=== PATIENT | female | born 1950 | race Caucasian/White ===

== ENCOUNTER 2018-11-10 20:33 | Inpatient (IN) ==
[2018-11-10] MEDS ORDERED: VANCOMYCIN CONSULT ACTIVE PRN ×2 (21:13→22:38)
[2018-11-10] MEDS ORDERED: VANCOMYCIN HCL 1,750 MG in SODIUM CHLORIDE 0.9% 500 ML IV ONE (21:13)
[2018-11-10] MEDS ORDERED: MoRPHine SULFATE 4 MG/ML 1 ML CARP\\VIAL IV STA (21:13)
[2018-11-10] MEDS ORDERED: ONDANSETRON INJ 2 MG/ML 2 ML VIAL IV STA (21:13)
[2018-11-10] MEDS ORDERED: SODIUM CHLORIDE 0.9% 1000ML 1,000 ML IV ONE (21:14)
[2018-11-10 22:03] LABS: Albumin Level 3.6 gm/dl (3.4-5.0); BUN Creatinine Ratio 18.2 (10-20); Calcium 9.5 mg/dl (8.5-10.1); Creatinine Clr Calc Pharmacy 70.5 ml/min; Est GFR (Non-African American) 72.5
[2018-11-10 22:07] LABS: Albumin Globulin Ratio 0.8 (0.9-2); Bilirubin,Total 0.7 mg/dl (0.2-1); Globulin 4.7 gm/dl (2.5-4.0); Total Protein 8.3 gm/dl (6.4-8.2)
[2018-11-10] MEDS ORDERED: MAGNESIUM HYDROXIDE SUSP 30 ML UDC PO PRN (22:25)
--- NOTE | 2018-11-10 22:53 | Ultrasound Report ---
US abdomen limited CLINICAL HISTORY: 67 years-old Female presenting with r groin abscess. TECHNIQUE: Real-time grayscale ultrasound imaging of the right labia and right groin was performed fo r a focused evaluation at the site of clinical concern. Color Doppler ultrasound imaging was also per formed. COMPARISON: None. FINDINGS: At the site of clinical concern in the region of the right labia, no fluid collection is evident. Ext ensive subcutaneous edema and dilated lymphatics with hyperemia of the subcutaneous fat. A catheter i s noted in this region. IMPRESSION: 1. Catheter noted in the phlegmonous region of inflammation. No abscess. Findings consistent with se tiffany cellulitis. Electronically signed by: Deniz Grey M.D. 11/10/2018 10:52 PM
[2018-11-10 23:52] LABS: Basophils # (auto) 0.01 K/uL (0-0.2); Basophils % (auto) 0.1 %; Eosinophils # (auto) 0.02 K/uL (0-0.5); Eosinophils % (auto) 0.1 %; Hematocrit (blood only) 37.3 % (37-47); Hemoglobin 12.6 g/dL (12.0-16.0); Immature Granulocytes # (auto) 0.03 K/uL (0.00-0.02); Immature Granulocytes % (auto) 0.2 %; Lymphocytes # (auto) 0.93 K/uL (1.2-3.4); Lymphocytes % (auto) 6.8 %; Mean Corpuscular Hgb Conc 33.8 g/dL (32-36); Mean Corpuscular Volume 83.4 fL (80-100); Mean Platelet Volume 11.7 fL (7.4-10.4); Monocytes # (auto) 0.89 K/uL (0.11-0.59); Monocytes % (auto) 6.5 %; Neutrophils # (auto) 11.72 K/uL (1.4-6.5); Neutrophils % (auto) 86.3 %; Platelet Count 202 K/uL (130-400); RDW Coefficient of Variation 14.6 % (11.5-14.5); RDW Standard Deviation 44.8 fL (36.4-46.3); Red Blood Count 4.47 M/uL (4.2-5.4)
--- NOTE | 2018-11-11 00:11 | Emergency Department Note ---
Entered by Alonso Leach acting as a scribe for Cristóbal Lu DO History of Present Illness General Chief complaint: Wound Stated complaint: ABCESS IN THE VAGINAL AREA, DOCTOR WAS TOLD TO COM Source: patient History of Present Illness Onset (ago): day(s) 2 Location: genitals (labial) Pain Consistency: + other (worsening) Quality: + other (soreness, abscess) Associated symptoms: + fever/chills (102); no nausea/vomiting The patient is a 67 year old female who presents to the Emergency Room with complaints of a worsening right-sided labial abscess. The patient reports that she first developed a small bump in the area two days ago, it worsened yes terday, and today it became larger and she developed soreness in the area. Today she also developed fevers of 102. She states that they were unable to roc the wound at the [facility] office today, but a word catheter was placed and she was given Rocephin. She called her PCP after developing fevers and was referred to the ER. She took three tablets of ibuprofen 2.5 hours ago that temporarily alleviated her symptoms. She denies difficulties urinating, nausea, vomiting, or diarrhea. Home Medications Home Medications Medication Instructions Recorded Confirmed Type atorvastatin [Lipitor] 20 mg PO DAILY 11/10/18 11/10/18 History cranberry 500 mg PO DAILY 11/10/18 11/10/18 History lisinopril 10 mg PO DAILY 11/10/18 11/10/18 History metronidazole [MetroCream] 1 applic TOPICAL BID PRN 11/10/18 11/10/18 History naproxen 250 mg PO BID PRN 11/10/18 11/10/18 History pantoprazole [Protonix] 40 mg PO DAILY 11/10/18 11/10/18 History sulfamethoxazole-trimethoprim 1 tab PO BID 11/10/18 11/10/18 History [Bactrim DS] tramadol 50 mg PO Q6H PRN 11/10/18 11/10/18 History Allergies Allergy/AdvReac Type Severity Reaction Status Date / Time adhesive Allergy Severe WELTS AND Verified 11/10/18 21:33 BLISTERS cephalexin [From Keflex] AdvReac Severe nausea/vomi Verified 11/10/18 21:34 ting Past Med/Surg History Medical History Hyperlipidemia Hypertension Family History Other Family history non-contributory Social History Feels Safe at Home: Yes Smoking Status: Never smoker Review of Systems See HPI for pertinent positives & negatives. and A total of 10 systems reviewed and were otherwise negative Physical Exam Vital Signs Vital Signs - 24 hr 11/10/18 20:37 11/10/18 23:20 11/10/18 23:46 Temperature 37.4 C Temperature Source Oral Sepsis Recent Fever Within 48 Hours Yes Sepsis New/Unexplained Change in Mental Status No Sepsis Action Taken by Nursing No Action Required Pulse Rate 103 H 80 Pulse Rate [Right] 78 Pulse Rhythm Regular Pulse Rhythm [Right] Regular Pulse Strength Normal Pulse Strength [Right] Normal Respiratory Rate 18 18 18 Respiratory Effort / Characteristics Non-Labored Non-Labored Spontaneous Respiratory Depth Normal Normal Respiratory Pattern Regular Regular Blood Pressure 145/91 H 141/92 H Blood Pressure [Right Arm] 150/88 H Blood Pressure Mean 109 Blood Pressure Mean [Right Arm] 108 Blood Pressure Position Sitting Blood Pressure Position [Right Arm] Lying Pulse Oximetry 95 96 96 Oxygen Delivery Method Room Air Room Air Room Air GENERAL: alert, sitting up in bed, well appearing, well nourished, no distress, non-toxic EYE EXAM: normal conjunctiva OROPHARYNX: no exudate, no erythema, lips, buccal mucosa, and tongue normal and mucous membranes are moist NECK: supple, no nuchal rigidity, no adenopathy, non-tender LUNGS: Clear to auscultation. Normal chest wall mechanics HEART: no murmurs, S1 normal and S2 normal ABDOMEN: abdomen soft, non-tender, normo-active bowel sounds, no masses, no rebo und or guarding. GENITOURINARY: There is a 6cm by 14cm abscess in the right labial area tracking towards the gluteus and toward the abdomen. BACK: Back is symmetrical on inspection and there is no deformity, no midline tenderness, no CVA tenderness. SKIN: no rashes and no bruising UPPER EXTREMITIES: upper extremities are grossly normal. LOWER EXTREMITIES: No pitting edema. NEURO EXAM: Normal sensorium, cranial nerves II-XII grossly intact, normal speech, no gross weakness of arms, no gross weakness of legs. Gross sensation intact. Course ED COURSE: Vital signs were reviewed and showed hypertension and tachycardia The patients medical record was reviewed The above diagnostic studies were performed and reviewed. ED treatments and interventions as stated above. 2104: The patient was evaluated in room B9. A complete history and physical examination was performed. 2117: I consulted Dr. Otero [facility]. He will evaluate the patient. Based on the patients age, coexisting illnesses, exam and lab findings the decision to treat as an inpatient was made. The patient remained stable while under my care. The patient will be evaluated for further management. Administered Medications Discontinued Medications Vancomycin HCl 1,750 mg/ (Sodium Chloride) 535 mls @ 200 mls/hr IV NOW ONE; Protocol Stop: 11/10/18 23:53 Last Admin: 11/10/18 22:00 Dose: 200 mls/hr Documented by: [id number] Sodium Chloride (Nss 1000ml) 1,000 mls @ 999 mls/hr IV .Q1H1M ONE Stop: 11/10/18 22:14 Last Infusion: 11/10/18 23:09 Dose: 0 mls/hr Documented by: [id number] Admin: 11/10/18 22:06 Dose: 999 mls/hr Documented by: [id number] Morphine Sulfate (Morphine Sulfate) 4 mg IV NOW STA Stop: 11/10/18 21:14 Last Admin: 11/10/18 21:59 Dose: 4 mg Documented by: [id number] Ondansetron HCl (Zofran) 4 mg IV NOW STA Stop: 11/10/18 21:14 Last Admin: 11/10/18 21:59 Dose: 4 mg Documented by: [id number] Medical Decision Making Differential Diagnosis Differential diagnosis includes: cellulitis, abscess, MRSA infection, DVT, necrotizing fasciitis, dermatitis, drug eruption, as well as others were entertained. Medical Records Attestation: I reviewed the patient's medical records. Home Medications Current Medication List: was personally reviewed by me Laboratory Data Attestation: I reviewed the patient's lab results. Result diagrams: 11/10/18 21:36 11/10/18 21:36 Lab Results 11/10/18 11/10/18 Range/Units 21:36 21:36 WBC 13.60 H (4.8-10.8) K/uL RBC 4.47 (4.2-5.4) M/uL Hgb 12.6 (12.0-16.0) g/dL Hct 37.3 (37-47) % MCV 83.4 (80-100) fL MCH 28.2 (25-34) pg MCHC 33.8 (32-36) g/dL RDW Std Deviation 44.8 (36.4-46.3) fL RDW Coeff of Conner 14.6 H (11.5-14.5) % Plt Count 202 (130-400) K/uL MPV 11.7 H (7.4-10.4) fL Immature Gran % (Auto) 0.2 % Neut % (Auto) 86.3 % Lymph % (Auto) 6.8 % Bracken % (Auto) 6.5 % Eos % (Auto) 0.1 % Baso % (Auto) 0.1 % Immature Gran # (Auto) 0.03 H (0.00-0.02) K/uL Neut # (Auto) 11.72 H (1.4-6.5) K/uL Lymph # (Auto) 0.93 L (1.2-3.4) K/uL Bracken # (Auto) 0.89 H (0.11-0.59) K/uL Eos # (Auto) 0.02 (0-0.5) K/uL Baso # (Auto) 0.01 (0-0.2) K/uL Sodium 138 (136-145) mmol/L Potassium (3.5-5.1) mmol/L Chloride 108 H (98-107) mmol/L Carbon Dioxide 20 L (21-32) mmol/L Anion Gap 9.0 (3-11) BUN 15 (7-18) mg/dl Creatinine 0.83 (0.6-1.2) mg/dl Est Cr Clr Drug Dosing 70.5 ml/min Est GFR ( Amer) 84.0 Est GFR (Non-Af Amer) 72.5 BUN/Creatinine Ratio 18.2 (10-20) Glucose 124 H (70-99) mg/dl Calcium 9.5 (8.5-10.1) mg/dl Total Bilirubin 0.7 (0.2-1) mg/dl AST (15-37) U/L ALT 21 (12-78) U/L Alkaline Phosphatase 105 (45-117) U/L Total Protein 8.3 H (6.4-8.2) gm/dl Albumin 3.6 (3.4-5.0) gm/dl Globulin 4.7 H (2.5-4.0) gm/dl Albumin/Globulin Ratio 0.8 L (0.9-2) Imaging Data Radiologist's Impression: Radiology results as stated below per my review and the radiologist's interpretation: US abdomen limited CLINICAL HISTORY: 67 years-old Female presenting with r groin abscess. TECHNIQUE: Real-time grayscale ultrasound imaging of the right labia and right groin was performed for a focused evaluation at the site of clinical concern. Color Doppler ultrasound imaging was also performed. COMPARISON: None. FINDINGS: At the site of clinical concern in the region of the right labia, no fluid collection is evident. Extensive subcutaneous edema and dilated lymphatics with hyperemia of the subcutaneous fat. A catheter is noted in this region. IMPRESSION: 1. Catheter noted in the phlegmonous region of inflammation. No abscess. Findings consistent with severe cellulitis. Electronically signed by: Deniz Grey M.D. 11/10/2018 10:52 PM Blood Pressure Blood Pressure Findings: Elevated blood pressure Blood Pressure Disposition: elevated BP felt to be situational MDM Narrative Patient is a 67-year-old female who presents the ER for a right labial pain and swelling associate with a fever of 102. Patient was seen in [facility] estate management specialist office today and had a work catheter placed. Started having fevers and was referred in. Labs showed a leukocytosis of 13,000. No significant anemia. BMP with a slightly low CO2 at 20. No significant transaminitis or elevated bilirubin. Patient is fairly healthy with no significant past medical history with exception of hypertension. Bedside ultrasound was performed and showed no focal collection but cobblestoning consistent with cellulitis. I did order a formal ultrasound which showed persistent cellulitis. Patient was given IV vancomycin. Patient already received IM Rocephin earlier today. She was updated bedside and admitted to [facility]. Impression & Plan Labial abscess, Cellulitis Discharge Plan Visit Data Chief Complaint: Wound Stated Complaint: ABCESS IN THE VAGINAL AREA, DOCTOR WAS TOLD TO COM ED Provider: Cristóbal Lu Discharge Problem: Labial abscess, Cellulitis Patient Disposition: Being Evaluated by Surgeon Discharge Instructions Interventions: ED Discharge Assessment Last Done: 11/10/18 23:46 Discharge Problem: Cellulitis Qualifiers: Site of cellulitis: unspecified site Qualified Code(s): L03.90 - Cellulitis, unspecified The scribe's documentation has been prepared under my direction and personally reviewed by me in its entirety. I confirm that the note above accurately reflects all work, treatment, procedures, and medical decision making performed by me.
[2018-11-11] MEDS: ACETAMINOPHEN 325 MG TAB PO PRN ×3 (00:44→15:45)
[2018-11-11] MEDS: LACTATED RINGER'S 1,000 ML IV SCH ×2 (00:45→08:47)
--- NOTE | 2018-11-11 01:47 | History and Physical Report ---
DATE OF ADMISSION: 11/10/2018 REASON FOR ADMISSION: Vulvar abscess on the right. HISTORY OF PRESENT ILLNESS: The patient is a 67-year-old white female para 3-0-0-3, postmenopausal, who presents to the ER after having noted a small dimple like lesion on the right labia this past Friday, which became enlarged, noticeably painful and draining as of yesterday, she presented to the office today with a large vulvar abscess. She was seen by Dr. Kevin who attempted to drain the abscess with little or no fluid obtained. A Word catheter was placed at that time and she was started on p.o. antibiotics. The patient developed a fever at home up to 102.6 and presented to the ER. PAST MEDICAL HISTORY: Significant for hypertension and elevated cholesterol. PAST SURGICAL HISTORY: Positive for bilateral knee replacement, hysterectomy. ALLERGIES: ADHESIVE and KEFLEX. SOCIAL HISTORY: Denies smoking, alcohol or drug use. FAMILY HISTORY: Noncontributory. REVIEW OF SYSTEMS: Negative. PHYSICAL EXAMINATION: VITAL SIGNS: Blood pressure 145/91, pulse 103, respirations 18, temperature here is 37.4 and O2 sat 95 on room air. HEENT: Within normal limits. LUNGS: Clear to auscultation. CORONARY: Regular rate and rhythm. ABDOMEN: Soft, nontender. EXTREMITIES: Without evidence of edema. Negative Homans'. GENITOURINARY: There is a slight right-sided labial abscess that is red and swollen and tender. Word catheter present. Cultures obtained from the wound. The wound is extending into the gluteal region, does not appear to be a necrotizing fasciitis at this point. ASSESSMENT: Vulvar abscess on the right with cellulitis extension into the gluteus muscle. There is no active pus draining at the present time. Labs are pending since the CBC machine is not working at this time. Cultures were obtained including wound, urine and blood. The patient will be started on IV vancomycin, she received a loading dose and will get a dose later on. PLAN: We will admit, keep on IV antibiotics and will allow to ambulate and eat.
[2018-11-11 02:12] LABS: Basophils # (auto) 0.01 K/uL (0-0.2); Basophils % (auto) 0.1 %; Eosinophils # (auto) 0.04 K/uL (0-0.5); Eosinophils % (auto) 0.3 %; Hematocrit (blood only) 32.4 % (37-47); Hemoglobin 10.9 g/dL (12.0-16.0); Immature Granulocytes # (auto) 0.04 K/uL (0.00-0.02); Immature Granulocytes % (auto) 0.3 %; Lymphocytes # (auto) 0.97 K/uL (1.2-3.4); Lymphocytes % (auto) 8.2 %; Mean Corpuscular Hgb Conc 33.6 g/dL (32-36); Mean Corpuscular Volume 83.5 fL (80-100); Mean Platelet Volume 10.2 fL (7.4-10.4); Monocytes # (auto) 1.03 K/uL (0.11-0.59); Monocytes % (auto) 8.7 %; Neutrophils # (auto) 9.73 K/uL (1.4-6.5); Neutrophils % (auto) 82.4 %; Platelet Count 155 K/uL (130-400); RDW Coefficient of Variation 14.9 % (11.5-14.5); RDW Standard Deviation 45.3 fL (36.4-46.3); Red Blood Count 3.88 M/uL (4.2-5.4); White Blood Count 11.82 K/uL (4.8-10.8)
[2018-11-11 02:40] LABS: Albumin Globulin Ratio 0.8 (0.9-2); BUN Creatinine Ratio 16.3 (10-20); Bilirubin,Total 0.6 mg/dl (0.2-1); Creatinine Clr Calc Pharmacy 84.8 ml/min; Est GFR (African American) 103.7; Est GFR (Non-African American) 89.4; Globulin 3.8 gm/dl (2.5-4.0); Potassium 3.5 mmol/L (3.5-5.1); Total Protein 6.8 gm/dl (6.4-8.2)
[2018-11-11 04:39] LABS: Appearance Urine Clear (Clear); Bacteria Urine Automated Negative (Negative); Bilirubin Urine Negative (Negative); Blood Urine 2+ (Negative); Color Urine Yellow; Glucose Urine UA Negative (Negative); Ketones Urine 1+ (Negative); Leukocyte Esterase Urine Trace (Negative); Nitrite Urine Negative (Negative); Protein Urine Negative (Negative); Specific Gravity Urine 1.014 (1.000-1.030); Urobilinogen Urine Negative (Negative); pH Urine 5.5 (4.5-7.5)
[2018-11-11 08:00] LABS: INR 1.1 (0.9-1.1); Prothrombin Time 11.1 Seconds (9.0-12.0)
[2018-11-11] MEDS: LISINOPRIL 10 MG TAB PO SCH (08:47)
[2018-11-11] MEDS: ATORVASTATIN 20 MG TAB PO SCH (08:48)
[2018-11-11] MEDS: PANTOprazole 40 MG TAB PO SCH (08:48)
[2018-11-11] MEDS: VANCOMYCIN HCL 1,250 MG in SODIUM CHLORIDE 0.9% 250 ML IV SCH ×2 (09:44→23:51)
[2018-11-11] MEDS: ALUMINUM/MAGNESIUM/SIMETH (MAALOX MAX) 30 ML UDC PO PRN (10:06)
[2018-11-11] MEDS: ENOXAPARIN INJ 40 MG/0.4 ML SYR SQ SCH (10:07)
--- NOTE | 2018-11-11 14:49 | Pharmacy Report ---
Pharmacy Abx Initial Consult - Date of Service November 11, 2018 - Pharmacy Dosing Scope Date of Consult: 11/11/18 Consultation requested by: Dr. Otero Pharmacy is consulted to initiate Vancomycin IV dosing therapy, order appropriate labs and adjust drug dose/frequency. - Subjective The patient is a 67 year old F admitted on 11/10/18 22:27. - Objective Height: 5 ft 6 in Weight: 83.1 kg Vital Signs (Past 12hrs): Vital Signs Temp Pulse Resp BP Pulse Ox Pulse Ox 11/11/18 11:30 37.0 C 79 16 122/79 97 97 11/11/18 07:15 37.1 C 84 18 132/77 96 11/11/18 03:15 36.9 C 72 18 116/72 97 Lab Results (24hrs): Laboratory Tests (24 Hours) 11/11/18 11/11/18 11/11/18 02:03 02:03 02:03 WBC 11.82 H Neut # (Auto) 9.73 H Creatinine 0.69 Est Cr Clr Drug Dosing 84.8 Vancomycin Peak 20.6 L 11/10/18 11/10/18 21:36 21:36 WBC 13.60 H Neut # (Auto) 11.72 H Creatinine 0.83 Est Cr Clr Drug Dosing 70.5 Vancomycin Peak Micro Results: 11/10/18 22:15 Gram Stain - Final Vulva Genital Culture - Pending 11/11/18 06:30 MRSA Surveillance Culture - Pending Skin 11/11/18 04:20 Urine Culture - Pending Urine,Clean Catch 11/10/18 23:28 Aerobic Blood Culture - Pending Blood Anaerobic Blood Culture - Pending 11/10/18 23:21 Aerobic Blood Culture - Pending Blood Anaerobic Blood Culture - Pending - Assessment & Plan Assessment 67 year old F admitted with vaginal abscess/ cellulitis. She was treated with Rocephin 1gm IM as an outpatient and Bactrim PO but her infection got worse. Plan Vancomycin for treatment of Vaginal abscess/cellulitis. Vancomycin IV * Estimated PK Parameters: Vd 0.7 L/kg, Fredo 0.063 hr-1, t1/2 11 hr * Loading dose: 1750 mg (21 mg/kg) * Maintenance dose: 1250 mg IV (15 mg/kg) every 14 hours * Goal trough level for cellulitis: 15 to 20 mcg/mL * Trough Vanco level ordered for 11/13/18 before dose at 0400. Pharmacy will continue to follow and will adjust dose/frequency as necessary. Thank you.
[2018-11-11] MEDS: IBUPROFEN 600 MG TAB PO PRN ×2 (16:33→22:14)
[2018-11-12] MEDS: IBUPROFEN 600 MG TAB PO PRN ×4 (04:31→22:09)
[2018-11-12] MEDS: PANTOprazole 40 MG TAB PO SCH ×2 (07:35→07:37)
[2018-11-12] MEDS: LISINOPRIL 10 MG TAB PO SCH (08:41)
[2018-11-12] MEDS: ATORVASTATIN 20 MG TAB PO SCH (08:41)
[2018-11-12] MEDS: ENOXAPARIN INJ 40 MG/0.4 ML SYR SQ SCH (08:42)
--- NOTE | 2018-11-12 09:32 | Obstetrical Progress Note ---
Date of Service November 12, 2018 Subjective Patient is seen and examined She feels better Pain is better No fever/ chills/ N&V/ problems with urination nor BM Eating good, ambulating Vital Signs Temp Pulse Pulse Resp BP BP Pulse Ox 11/12/18 07:40 36.5 C 57 L 18 118/73 97 11/12/18 04:30 36.7 C 64 18 108/67 98 11/11/18 23:40 36.5 C 65 18 127/75 97 11/11/18 19:25 36.7 C 70 18 114/66 96 11/11/18 15:50 38.0 C H 79 22 123/69 95 11/11/18 11:30 37.0 C 79 16 122/79 97 Pulse Ox 11/12/18 07:40 11/12/18 04:30 98 11/11/18 23:40 97 11/11/18 19:25 96 11/11/18 15:50 95 11/11/18 11:30 97 Intake and Output 11/11/18 11/12/18 11/12/18 22:59 06:59 14:59 Intake Total 275 / 1837.5 Balance 275 / 537.5 Intake: IV 275 / 1012.5 Vancomycin HCl 1,250 mg In Nss 275 / 550 250 ml @ 125 mls/hr IV Q14H [facility] Rx#:[id number] Lab Results 11/10/18 11/10/18 11/11/18 Range/Units 21:36 21:36 02:03 WBC 13.60 H (4.8-10.8) K/uL RBC 4.47 (4.2-5.4) M/uL Hgb 12.6 (12.0-16.0) g/dL Hct 37.3 (37-47) % MCV 83.4 (80-100) fL MCH 28.2 (25-34) pg MCHC 33.8 (32-36) g/dL RDW Std Deviation 44.8 (36.4-46.3) fL RDW Coeff of Conner 14.6 H (11.5-14.5) % Plt Count 202 (130-400) K/uL MPV 11.7 H (7.4-10.4) fL Immature Gran % (Auto) 0.2 % Neut % (Auto) 86.3 % Lymph % (Auto) 6.8 % Taney % (Auto) 6.5 % Eos % (Auto) 0.1 % Baso % (Auto) 0.1 % Immature Gran # (Auto) 0.03 H (0.00-0.02) K/uL Neut # (Auto) 11.72 H (1.4-6.5) K/uL Lymph # (Auto) 0.93 L (1.2-3.4) K/uL Taney # (Auto) 0.89 H (0.11-0.59) K/uL Eos # (Auto) 0.02 (0-0.5) K/uL Baso # (Auto) 0.01 (0-0.2) K/uL PT (9.0-12.0) Seconds INR (0.9-1.1) Sodium 138 (136-145) mmol/L Potassium (3.5-5.1) mmol/L Chloride 108 H (98-107) mmol/L Carbon Dioxide 20 L (21-32) mmol/L Anion Gap 9.0 (3-11) BUN 15 (7-18) mg/dl Creatinine 0.83 (0.6-1.2) mg/dl Est Cr Clr Drug Dosing 70.5 ml/min Est GFR ( Amer) 84.0 Est GFR (Non-Af Amer) 72.5 BUN/Creatinine Ratio 18.2 (10-20) Glucose 124 H (70-99) mg/dl Calcium 9.5 (8.5-10.1) mg/dl Total Bilirubin 0.7 (0.2-1) mg/dl AST (15-37) U/L ALT 21 (12-78) U/L Alkaline Phosphatase 105 (45-117) U/L Total Protein 8.3 H (6.4-8.2) gm/dl Albumin 3.6 (3.4-5.0) gm/dl Globulin 4.7 H (2.5-4.0) gm/dl Albumin/Globulin Ratio 0.8 L (0.9-2) Urine Color Urine Appearance (Clear) Urine pH (4.5-7.5) Ur Specific Elba (1.000-1.030) Urine Protein (Negative) Urine Glucose (UA) (Negative) Urine Ketones (Negative) Urine Blood (Negative) Urine Nitrite (Negative) Urine Bilirubin (Negative) Urine Urobilinogen (Negative) Ur Leukocyte Esterase (Negative) Urine WBC (Auto) (0-5) /hpf Urine RBC (Auto) (0-4) /hpf U Hyaline Cast (Auto) (0-5) /lpf U Epithel Cells (Auto) (0-5) /lpf Urine Bacteria (Auto) (Negative) Vancomycin Peak 20.6 L (30-40) mcg/ml 11/11/18 11/11/18 11/11/18 Range/Units 02:03 02:03 04:20 WBC 11.82 H (4.8-10.8) K/uL RBC 3.88 L (4.2-5.4) M/uL Hgb 10.9 L (12.0-16.0) g/dL Hct 32.4 L (37-47) % MCV 83.5 (80-100) fL MCH 28.1 (25-34) pg MCHC 33.6 (32-36) g/dL RDW Std Deviation 45.3 (36.4-46.3) fL RDW Coeff of Conner 14.9 H (11.5-14.5) % Plt Count 155 (130-400) K/uL MPV 10.2 (7.4-10.4) fL Immature Gran % (Auto) 0.3 % Neut % (Auto) 82.4 % Lymph % (Auto) 8.2 % Taney % (Auto) 8.7 % Eos % (Auto) 0.3 % Baso % (Auto) 0.1 % Immature Gran # (Auto) 0.04 H (0.00-0.02) K/uL Neut # (Auto) 9.73 H (1.4-6.5) K/uL Lymph # (Auto) 0.97 L (1.2-3.4) K/uL Taney # (Auto) 1.03 H (0.11-0.59) K/uL Eos # (Auto) 0.04 (0-0.5) K/uL Baso # (Auto) 0.01 (0-0.2) K/uL PT (9.0-12.0) Seconds INR (0.9-1.1) Sodium 138 (136-145) mmol/L Potassium 3.5 (3.5-5.1) mmol/L Chloride 108 H (98-107) mmol/L Carbon Dioxide 25 (21-32) mmol/L Anion Gap 5.0 (3-11) BUN 11 (7-18) mg/dl Creatinine 0.69 (0.6-1.2) mg/dl Est Cr Clr Drug Dosing 84.8 ml/min Est GFR ( Amer) 103.7 Est GFR (Non-Af Amer) 89.4 BUN/Creatinine Ratio 16.3 (10-20) Glucose 110 H (70-99) mg/dl Calcium 8.0 L D (8.5-10.1) mg/dl Total Bilirubin 0.6 (0.2-1) mg/dl AST 12 L (15-37) U/L ALT 16 (12-78) U/L Alkaline Phosphatase 85 (45-117) U/L Total Protein 6.8 (6.4-8.2) gm/dl Albumin 3.0 L (3.4-5.0) gm/dl Globulin 3.8 (2.5-4.0) gm/dl Albumin/Globulin Ratio 0.8 L (0.9-2) Urine Color Yellow Urine Appearance Clear (Clear) Urine pH 5.5 (4.5-7.5) Ur Specific Elba 1.014 (1.000-1.030) Urine Protein Negative (Negative) Urine Glucose (UA) Negative (Negative) Urine Ketones 1+ H (Negative) Urine Blood 2+ H (Negative) Urine Nitrite Negative (Negative) Urine Bilirubin Negative (Negative) Urine Urobilinogen Negative (Negative) Ur Leukocyte Esterase Trace H (Negative) Urine WBC (Auto) 1-5 (0-5) /hpf Urine RBC (Auto) 10-30 H (0-4) /hpf U Hyaline Cast (Auto) 1-5 (0-5) /lpf U Epithel Cells (Auto) 10-20 H (0-5) /lpf Urine Bacteria (Auto) Negative (Negative) Vancomycin Peak (30-40) mcg/ml 11/11/18 Range/Units 07:38 WBC (4.8-10.8) K/uL RBC (4.2-5.4) M/uL Hgb (12.0-16.0) g/dL Hct (37-47) % MCV (80-100) fL MCH (25-34) pg MCHC (32-36) g/dL RDW Std Deviation (36.4-46.3) fL RDW Coeff of Conner (11.5-14.5) % Plt Count (130-400) K/uL MPV (7.4-10.4) fL Immature Gran % (Auto) % Neut % (Auto) % Lymph % (Auto) % Taney % (Auto) % Eos % (Auto) % Baso % (Auto) % Immature Gran # (Auto) (0.00-0.02) K/uL Neut # (Auto) (1.4-6.5) K/uL Lymph # (Auto) (1.2-3.4) K/uL Taney # (Auto) (0.11-0.59) K/uL Eos # (Auto) (0-0.5) K/uL Baso # (Auto) (0-0.2) K/uL PT 11.1 (9.0-12.0) Seconds INR 1.1 (0.9-1.1) Sodium (136-145) mmol/L Potassium (3.5-5.1) mmol/L Chloride (98-107) mmol/L Carbon Dioxide (21-32) mmol/L Anion Gap (3-11) BUN (7-18) mg/dl Creatinine (0.6-1.2) mg/dl Est Cr Clr Drug Dosing ml/min Est GFR ( Amer) Est GFR (Non-Af Amer) BUN/Creatinine Ratio (10-20) Glucose (70-99) mg/dl Calcium (8.5-10.1) mg/dl Total Bilirubin (0.2-1) mg/dl AST (15-37) U/L ALT (12-78) U/L Alkaline Phosphatase (45-117) U/L Total Protein (6.4-8.2) gm/dl Albumin (3.4-5.0) gm/dl Globulin (2.5-4.0) gm/dl Albumin/Globulin Ratio (0.9-2) Urine Color Urine Appearance (Clear) Urine pH (4.5-7.5) Ur Specific Elba (1.000-1.030) Urine Protein (Negative) Urine Glucose (UA) (Negative) Urine Ketones (Negative) Urine Blood (Negative) Urine Nitrite (Negative) Urine Bilirubin (Negative) Urine Urobilinogen (Negative) Ur Leukocyte Esterase (Negative) Urine WBC (Auto) (0-5) /hpf Urine RBC (Auto) (0-4) /hpf U Hyaline Cast (Auto) (0-5) /lpf U Epithel Cells (Auto) (0-5) /lpf Urine Bacteria (Auto) (Negative) Vancomycin Peak (30-40) mcg/ml Blood cx: negative Skin cx: negative for MRSA Gram stain no clue cells Alert orientedx3, NAD, walking in room Abd soft, NT, ND Vulva; there is 5x3 cm induration and redness over right L. Majora, word catheter is draining small yellow pus, skin over mons pubis is mildly erythematous but NT, no induration and very soft Gluteal skin pink but soft, NT, no induration AP: 67 yo female with vulva/ labial abscess, admitted on 11/10 night , on IV Vancomycin ( Sen Tuttle checked with ID) VSS Afebrile, 38 temp yesterday afternoon Continue with IV Vancomycin, till afebrile for [address] Kevin who agreed with plan Anticipate D/C in am Results & Data Vital Signs (Past 12 Hours) Vital Signs Temp Pulse Pulse Resp BP BP Pulse Ox 11/12/18 07:40 36.5 C 57 L 18 118/73 97 11/12/18 04:30 36.7 C 64 18 108/67 98 11/11/18 23:40 36.5 C 65 18 127/75 97 Pulse Ox 11/12/18 07:40 11/12/18 04:30 98 11/11/18 23:40 97
[2018-11-12 09:35] LABS: Basophils # (auto) 0.01 K/uL (0-0.2); Basophils % (auto) 0.1 %; Eosinophils # (auto) 0.11 K/uL (0-0.5); Hematocrit (blood only) 33.9 % (37-47); Hemoglobin 11.4 g/dL (12.0-16.0); Immature Granulocytes # (auto) 0.02 K/uL (0.00-0.02); Immature Granulocytes % (auto) 0.2 %; Lymphocytes # (auto) 1.11 K/uL (1.2-3.4); Lymphocytes % (auto) 9.9 %; Mean Corpuscular Hgb Conc 33.6 g/dL (32-36); Mean Corpuscular Volume 83.9 fL (80-100); Mean Platelet Volume 10.8 fL (7.4-10.4); Monocytes # (auto) 0.39 K/uL (0.11-0.59); Monocytes % (auto) 3.5 %; Neutrophils % (auto) 85.3 %; Platelet Count 186 K/uL (130-400); RDW Standard Deviation 46.5 fL (36.4-46.3); Red Blood Count 4.04 M/uL (4.2-5.4); White Blood Count 11.24 K/uL (4.8-10.8)
[2018-11-12] MEDS: ALUMINUM/MAGNESIUM/SIMETH (MAALOX MAX) 30 ML UDC PO PRN (10:38)
[2018-11-12] MEDS: VANCOMYCIN HCL 1,250 MG in SODIUM CHLORIDE 0.9% 250 ML IV SCH (13:44)
[2018-11-12] MEDS: ACETAMINOPHEN 325 MG TAB PO PRN (18:28)
[2018-11-13] MEDS ORDERED: VANCOMYCIN TROUGH ONE (03:30)
[2018-11-13] MEDS: IBUPROFEN 600 MG TAB PO PRN ×2 (04:04→10:19)
[2018-11-13] MEDS: VANCOMYCIN HCL 1,250 MG in SODIUM CHLORIDE 0.9% 250 ML IV SCH (04:08)
[2018-11-13 04:10] LABS: Est GFR (African American) 90.5; Est GFR (Non-African American) 78.1
[2018-11-13] MEDS: PANTOprazole 40 MG TAB PO SCH (06:53)
--- NOTE | 2018-11-13 07:09 | Gynecologic Progress Note ---
Date of Service November 13, 2018 Assessment & Plan (1) Labial abscess: 67 yo admitted with a right labial abscess and cellulitis. Hospital day #3. Patient on IV Vancomycin. Downtrending WBC. Afebrile x 24 hours. Blood cultures: staph aureus (sensitivities pending). Word catheter removed although highly recommend catheter stay in place, but Patient strongly opposed secondary to discomfort. Plan to discharge home with antibiotics. Recommend sitz baths. Patient was previously prescribed tramadol for pain. Subjective Patient seen and examined. Overnight did well. Afebrile. Tolerating regular diet. Ambulating without difficulty. Urinating without difficulty. +BM. Patient desires removal of word catheter secondary to discomfort. Review of Systems Review of Systems: All systems reviewed and are unremarkable except as noted in the section Genitourinary: Minimal Labial discharge from the abscess site Physical Exam Constitutional: WD/WN, vitals as above Respiratory: normal respiratory effort, lungs clear to auscultation Cardiovascular: RRR, no murmur, no edema Gastrointestinal (Abdomen): normal bowel sounds, soft, nontender, no hepatosplenomegaly Genitourinary: Labial abscess slightly erythematous. Edema decreasing. Tenderness improved. Minimal drainage of red tinged fluid from abscess site. Word catheter in place. Results & Data Vital Signs (Past 12 Hours) Vital Signs Temp Pulse Resp BP Pulse Ox 11/13/18 03:31 36.7 C 56 L 16 131/81 96 11/12/18 23:17 36.6 C 58 L 16 131/80 95 11/12/18 19:29 36.9 C 74 18 118/71 97
[2018-11-13] MEDS: LISINOPRIL 10 MG TAB PO SCH (08:29)
[2018-11-13] MEDS: ENOXAPARIN INJ 40 MG/0.4 ML SYR SQ SCH (08:29)
[2018-11-13] MEDS: ATORVASTATIN 20 MG TAB PO SCH (08:29)
--- NOTE | 2018-11-13 08:44 | Discharge Summary ---
Date of Service November 13, 2018 Admission HPI Per Admitting Provider The patient is a 67-year-old white female para 3-0-0-3, postmenopausal, who presents to the ER after having noted a small dimple like lesion on the right labia this past Friday, which became enlarged, noticeably painful and draining as of yesterday, she presented to the office today with a large vulvar abscess. She was seen by Dr. Kevin who attempted to drain the abscess with little or no fluid obtained. A Word catheter was placed at that time and she was started on p.o. antibiotics. The patient developed a fever at home up to 102.6 and presented to the ER. Admission Exam (Per Admitting) Constitutional WD/WN, vitals as above Respiratory normal respiratory effort, lungs clear to auscultation Cardiovascular RRR, no murmur, no edema Gastrointestinal (Abdomen) normal bowel sounds, soft, nontender, no hepatosplenomegaly Discharge Data Consultations 11/10/18 21:32 ED Decision to Admit Stat Hospital Course (1) Labial abscess: 67 yo admitted with a right labial abscess and cellulitis. Hospital day #3. Patient on IV Vancomycin. Downtrending WBC. Afebrile x 24 hours. Blood cultures: staph aureus (sensitivities pending). Word catheter removed although highly recommend catheter stay in place, but Patient strongly opposed secondary to discomfort. Plan to discharge home with antibiotics. Recommend sitz baths. Patient was previously prescribed tramadol for pain. Discharge Instructions ACTIVITY RECOMMENDATIONS: * Avoid tampons, douching, hot tubs, pools, and intercourse until bleeding has stopped. * May shower as usual. * No strenuous activity for 24-48 hours. After 24-48 hours, you can do anything you feel comfortable doing. RETURN TO SCHOOL/WORK: * You may return to school or work after follow-up evaluation with Physician DIET: * Resume previous diet. MEDICATIONS: Resume previous medications unless instructed otherwise by your surgeon. Ibuprofen 200mg 2-3 tablets every 4-6 hours as needed --OR-- Aleve 2 tablets every 8-12 hours as needed for post-operative discomfort Tramadol 50 mg, one tablet every 6 hours as needed for moderate pain Bactrim (Please use antibiotics previously prescribed by Dr. Myrick) Medications are over the counter. Tylenol may be used if above medications are contraindicated or not preferred. Medication should be taken with food or milk. do not take on an empty stomach. SPECIAL CARE INSTRUCTIONS: * Check temperature twice daily for one week. Report any elevation over 101 degrees. * Call office if you experience increased pelvic pain or discomfort not relieved by pain medicine, if you have foul smelling vaginal discharge, if you have bleeding that is heavier than a normal menstrual flow. If you are changing a maxi pad every 1- 2 hours, this is too heavy. vaginal spotting is normal for 1-2 weeks. FOLLOW UP VISIT: , 11/19/18 at 10: 30 am. Please arrive 15 minutes earlier than appointment time for Nursing Triage. Call your doctor's office for any questions or concerns,
== END 2018-11-13 12:08 | disposition home or self-care (01) | DRG 758 ==
LOC: ED 20:33 → 4N 22:27